=== PATIENT | female | born 1965 | race Caucasian/White ===

== ENCOUNTER 2019-02-07 20:00 | Inpatient (IN) | payer SELFPAY ==
[2019-02-07] MEDS ORDERED: Nitroglycerin 2% Ointment 1 INCH/1 GM Packet ONE (20:17)
[2019-02-07] MEDS ORDERED: Calcium Carbonate 500 MG ChewTAB PO PRN (21:18)
[2019-02-07] MEDS ORDERED: Senokot S 8.6-50 MG TAB PO PRN ×2 (21:18)
[2019-02-07] MEDS ORDERED: Ondansetron PF 4 MG/2 ML Vial IVP PRN (21:18)
[2019-02-07] MEDS ORDERED: Acetaminophen 500 MG TAB PO PRN (21:18)
[2019-02-07] MEDS ORDERED: Benzonatate 100 MG CAP PO PRN (21:18)
[2019-02-07] MEDS ORDERED: Bisacodyl 5 MG TAB PO PRN ×2 (21:18)
[2019-02-07] MEDS ORDERED: Diabetic Tussin 200 MG/10 ML UDCUP PO PRN (21:18)
[2019-02-07] MEDS ORDERED: Sodium Chloride 0.65% Nasal 44 ML BOT EA NARE PRN (21:18)
[2019-02-07] MEDS ORDERED: hydrALAZINE 20 MG/ML VIAL SLOW IVP PRN (21:18)
[2019-02-07] MEDS ORDERED: cloNIDine 0.1 MG TAB PO PRN (21:18)
[2019-02-07] MEDS ORDERED: TICAGRELOR 90 MG TABLET PO SCH (21:30)
[2019-02-07] MEDS ORDERED: Morphine 2 MG/ML SYRINGE SLOW IVP PRN (21:43)
[2019-02-07 22:43] VITALS: BMI 26.2
[2019-02-07] MEDS: Nitroglycerin 2% Ointment 1 INCH/1 GM Packet TOP SCH (23:04)
--- NOTE | 2019-02-08 00:10 | HP ---
PRIMARY CARE PHYSICIAN: None. CHIEF COMPLAINT: Chest pain and shortness of breath. HISTORY OF PRESENTING ILLNESS: Ms. Patel is a very pleasant 53-year-old female with past medical history of tobacco abuse and possibly COPD who presented with the above-mentioned complaint to [facility]. History is mainly obtained by the patient herself and supplemented by her family member present in the room. Electronic medical records have been reviewed. Ms. Patel reports that she has been doing fairly well except for some congestion for the last couple of days. This morning, she went to work, but had to drive back midway because she started to have significant amount of chest pain located in the left anterior upper chest. She rates it as a 10/10 pain in intensity, and it felt like a pressure. It was associated with some shortness of breath. She turned around and came home and called her . The pain started to go down her arm, and her arm felt heavy. There was no dizziness, lightheadedness, nausea, or vomiting. She does notice that she has been feeling easily winded for the last few weeks but denies any swelling of her legs. Her reports that yesterday also she looked kind of pale and had some chest discomfort. When she was brought into [facility], her blood pressure was 140/69 with a pulse of 71. She underwent general evaluation. Her chest x-ray was unremarkable. Her EKG showed sinus bradycardia with minimal ST changes in some inferior and lateral leads. Her troponin was, however, elevated to 1.241. She received aspirin sublingual and transdermal nitroglycerin as well as one dose of Lovenox and was transferred to our facility for further evaluation and care. In our ER, she was still hurting and required morphine medications including morphine. Her BNP was 374. Her repeat troponin in our facility was elevated to 1.99. She is now being admitted with a presumptive diagnosis of acute ID, type 2. PAST MEDICAL HISTORY: 1. Possibly COPD. No formal diagnosis. 2. Tobacco abuse. PAST SURGICAL HISTORY: 1. section. 2. Right elbow surgery. 3. Bilateral carpal tunnel surgery. PSYCHIATRIC HISTORY: No anxiety. No depression. 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 She has history of methamphetamine use, but currently none. She has smoked one pack per day for 20 years and has cut down to half pack per day for the last six months. FAMILY HISTORY: One of her grandparents had history of stroke. Her mother had hypertension. She denies any history of congestive heart failure or heart attack in the family. CODE STATUS: Full code discussed with the patient. ALLERGIES: NO KNOWN MEDICATION ALLERGIES. CURRENT MEDICATIONS: Albuterol inhaler p.r.n. REVIEW OF SYSTEM: A 14-point review of system is done. It is negative except for those mentioned in the history and physical. All others are negative. LABORATORY STUDIES: Lab examination; CBC shows WBC is 12.8, otherwise unremarkable. PT, PTT, INR are within normal limits. Serum chemistry showed potassium of 3.4. CK-MB normal at 5.1. BNP 378. Initial troponin 1.241. Repeat troponin 1.999. Chest x-ray by my review has no evidence of any pulmonary edema, cardiomegaly, or any infiltrate. A 12-lead EKG by my review shows normal sinus rhythm without any specific acute ST or T-wave changes. PHYSICAL EXAMINATION: VITAL SIGNS: Upon presentation to the ER, blood pressure 140/69, pulse of 71, respirations 20, saturating 99% on room air. GENERAL EXAMINATION: She does appear somewhat pale, but otherwise in no acute distress. She is awake, alert, and oriented x3. HEENT EXAMINATION: Mucous membrane is moist and pink. No oropharyngeal exudate or erythema. Head is normocephalic and atraumatic. Pupils are equal and reactive to light and accommodation. Extraocular movement intact. NECK: Supple without any lymphadenopathy, JVD, or bruit. CHEST: Nontender to palpation. Clear to auscultation bilaterally without any wheezing, rales, or rhonchi. HEART: Rate and rhythm are regular without any murmurs, rubs, or gallops. ABDOMEN: Soft, nontender, and nondistended. Positive bowel sounds. No rebound, guarding, or rigidity. EXTREMITIES: Free of any cyanosis, clubbing, or edema. NEUROLOGICAL EXAMINATION: Nonfocal. SKIN: Free of any rashes or bruises. Feels warm and dry to touch. PSYCHIATRIC: Normal affect. IMPRESSION AND PLAN: 1. Type 2 myocardial infarction, likely non-ST elevation myocardial infarction. The patient will be treated with a full dose aspirin and full-dose Lovenox 1 mg/kg. We will continue to trend serial cardiac enzymes and consult Cardiology. Dr. Cabello was notified by the emergency room physician. She will be kept n.p.o. as most likely she will need a cardiac catheterization. Transthoracic echocardiogram has been ordered to assess cardiac function and valvular abnormality. The patient is high risk due to her family history as well as long-standing tobacco abuse. She will be on nurse monitoring. We will check lipid panel in the morning and start her on low-dose statin for now. Add beta morris as tolerated. We will hold for now in anticipation of cardiac cath for tomorrow. She will be treated with sublingual p.r.n. nitroglycerin as well as transdermal scheduled nitroglycerin for now. She is hemodynamically stable and currently, symptoms are under much better control. Also add nebulizers p.r.n. We will also give her one dose of Brilinta for now. Drug screen has been ordered, but the patient reports that she is clean for the last 2 years. 2. Chronic obstructive pulmonary disease. The patient will be given nebulizers as needed. She is currently compensated without any acute flare ups. 3. Tobacco abuse. Extensive counseling is provided both to the patient and her significant other in the room about tobacco cessation. The patient and family member verbalized understanding. 4. Deep venous thrombosis and gastrointestinal prophylaxis. 5. Add p.r.n. medications and supportive care. DISPOSITION: Ms. Patel is currently being admitted to the hospital with type 2 acute myocardial infarction. Estimated length of stay at this time is at least 2 to 3 midnights. Further management will depend upon her clinical course. Job ID: [id number]
[2019-02-08 00:41] LABS: Troponin I 4.296 ng/mL (< 0.028)
[2019-02-08 02:39] LABS: #Basophils 0.1 thou/uL (0.0-0.2); #Eosinphils 0.1 thou/uL (0.0-0.7); #Monocytes 0.8 thou/uL (0.11-0.59); #Neutrophils 5.5 thou/uL (1.40-6.50); %Basophils 0.8 % (0.0-1.0); %Eosinophils 0.7 % (0.0-10.0); %Lymphocytes 38.2 % (21.0-51.0); %Monocytes 7.9 % (0.0-10.0); %Neutrophils 52.5 % (42.0-75.0); Hemoglobin 11.7 g/dL (12.0-16.0); Mean Corpuscular HGB CONC 34.1 g/dL (32.0-36.0); Mean Corpuscular Hemoglobin 32.1 pg (27.0-31.0); Mean Corpuscular Volume 94.1 fL (78.0-98.0); Platelet Count 140 thou/uL (130-400); Red Blood Cell (RBC) Count 3.65 mill/uL (4.20-5.40); White Blood Cell (WBC) Count 10.5 thou/uL (4.8-10.8)
[2019-02-08 03:02] LABS: Anion Gap 11 mmol/L (10-20); BUN (Urea Nitrogen) 9 mg/dL (9.8-20.1); Calc. Creatinine Clearance 90 mL/min (70-130); Calcium 9.3 mg/dL (7.8-10.44); Carbon Dioxide 27 mmol/L (22-29); Cardiac Risk 7.7 (Less than 4.5); Chloride 107 mmol/L (98-107); Cholesterol 184 mg/dl (< 200 Desired); Estimated GFR-MDRD 78; Glucose 97 mg/dL (70-105); HDL Cholesterol 24 mg/dL (>60 Neg Risk); LDL Cholesterol, Calculated 133 mg/dL; Potassium 3.5 mmol/L (3.5-5.1); Sodium 141 mmol/L (136-145); Triglycerides 137 mg/dL (Less than 150)
[2019-02-08 03:10] LABS: Amphetamine Not Detected (NotDetected); Barbiturates Screen Not Detected (NotDetected); Benzodiazepine Screen Detected (NotDetected); Cocaine Metabolite Screen Not Detected (NotDetected); Medtox Control Line Valid? VALID (VALID); Medtox Reader # READER 4; Methadone Not Detected (NotDetected); Methamphetamine Not Detected (NotDetected); Opiate Screen Detected (NotDetected); Oxycodone Screen Not Detected (NotDetected); Phencyclidine (PCP) Not Detected (NotDetected); THC/Cannabinoid Screen Detected (NotDetected); Tricyclic Screen Not Detected (NotDetected)
[2019-02-08 03:32] LABS: Troponin I 6.216 ng/mL (< 0.028)
[2019-02-08] MEDS: Nitroglycerin 0.4 MG TAB (25 Tab Bottle) SL PRN ×3 (04:07→04:19)
[2019-02-08] MEDS: Nitroglycerin 2% Ointment 1 INCH/1 GM Packet TOP SCH ×3 (05:11→20:54)
[2019-02-08] MEDS ORDERED: Communication Order-Pharmacy FS SCH (08:45)
[2019-02-08] MEDS ORDERED: Heparin 10,000 UNITS/1 ML VIAL ONE (08:57)
[2019-02-08] MEDS ORDERED: Nitroglycerin 100MG/250ML BOT 0 ML ONE (08:57)
[2019-02-08] MEDS ORDERED: Enoxaparin Sodium 80 MG/0.8 ML SYRINGE SC SCH (09:00)
[2019-02-08] MEDS ORDERED: Aspirin 325 mg Enteric Coated Tablet PO SCH (09:00)
[2019-02-08 09:29] LABS: Hemoglobin 11.6 g/dL (12.0-16.0); Platelet Count 150 thou/uL (130-400)
[2019-02-08] MEDS: guaiFENesin ER 600 MG TAB PO SCH ×2 (09:32→20:56)
[2019-02-08] MEDS: Famotidine 20 MG TAB PO SCH ×2 (09:32→20:55)
--- NOTE | 2019-02-08 09:34 | PDOC.PN ---
- Subjective Encounter Start Date: 02/08/19 Encounter Start Time: 07:40 -: old records requested/rev Patient seen and examined. No new complaints. No overnight events has some chest heaviness - Objective MAR Reviewed: Yes Vital Signs & Weight: Vital Signs (12 hours) Temp Pulse Resp BP Pulse Ox 02/08/19 07:36 95 02/08/19 04:05 98.4 F 66 16 161/63 H 97 02/07/19 23:10 96 02/07/19 22:10 98.9 F 57 L 15 114/58 L 96 Weight Weight 148 lb 1.6 oz I&O: 02/07/19 02/08/19 02/09/19 06:59 06:59 06:59 Intake Total 738 Output Total 100 Balance 638 Result Diagrams: 02/08/19 09:08 02/08/19 02:27 Radiology Reviewed by me: Yes EKG Reviewed by me: Yes Phys Exam - Physical Examination Constitutional: NAD HEENT: PERRLA, moist MMs, sclera anicteric Neck: no JVD, supple Respiratory: no wheezing, no rales, no rhonchi Cardiovascular: RRR, no significant murmur, no rub Gastrointestinal: soft, non-tender, no distention, positive bowel sounds Musculoskeletal: no edema, pulses present Neurological: non-focal, normal sensation, moves all 4 limbs Lymphatic: no nodes Psychiatric: normal affect, A&O x 3 Skin: no rash, normal turgor Dx/Plan (1) NSTEMI (non-ST elevated myocardial infarction) Code(s): I21.4 - NON-ST ELEVATION (NSTEMI) MYOCARDIAL INFARCTION Status: Acute (2) Dyslipidemia Code(s): E78.5 - HYPERLIPIDEMIA, UNSPECIFIED Status: Chronic (3) Tobacco abuse Code(s): Z72.0 - TOBACCO USE Status: Chronic - Plan cont current plan of care * continue aspirin and lovenox * add lipitor 40 mg and metoprolol 12.5 mg po bid * today cardiac cath * echo * counselled to avoid smoking * medication reviewed as below * symptomatic treatment. Review of Systems - Review of Systems ENT: negative: Ear Pain, Ear Discharge, Nose Pain, Nose Discharge, Nose Congestion, Mouth Pain, Mouth Swelling, Throat Pain, Throat Swelling, Other Respiratory: negative: Cough, Dry, Shortness of Breath, Hemoptysis, SOB with Excertion, Pleuritic Pain, Sputum, Wheezing Cardiovascular: negative: chest pain, palpitations, orthopnea, paroxysmal nocturnal dyspnea, edema, light headedness, other Gastrointestinal: negative: Nausea, Vomiting, Abdominal Pain, Diarrhea, Constipation, Melena, Hematochezia, Other Genitourinary: negative: Dysuria, Frequency, Incontinence, Hematuria, Retention , Other Musculoskeletal: negative: Neck Pain, Shoulder Pain, Arm Pain, Back Pain, Hand Pain, Leg Pain, Foot Pain, Other Skin: negative: Rash, Lesions, Xander, Bruising, Other - Medications/Allergies Allergies/Adverse Reactions: Allergies Allergy/AdvReac Type Severity Reaction Status Date / Time No Known Drug Allergies Allergy Verified 02/08/19 02:42 Medications: Current Medications Acetaminophen (Tylenol) 1,000 mg PO Q6H PRN PRN Reason: Mild Pain (1-3) Hydrocodone Bitart/Acetaminophen ([place] 5/325) 1 tab PO Q4H PRN PRN Reason: Moderate Pain (4-6) Albuterol/Ipratropium (Duoneb) 3 ml NEB [id number] PRN PRN Reason: SOB &/or Wheezing Aspirin (Ecotrin) 325 mg PO DAILY [facility] Last Admin: 02/08/19 09:31 Dose: Not Given Atorvastatin Calcium (Lipitor) 20 mg PO HS [facility] Benzonatate (Tessalon) 100 mg PO Q6H PRN PRN Reason: Cough Bisacodyl (Dulcolax) 10 mg PO DAILYPRN PRN PRN Reason: Constipation Calcium Carbonate (Tums) 1,000 mg PO Q4H PRN PRN Reason: Heartburn or Indigestion Clonidine (Catapres) 0.1 mg PO Q4H PRN PRN Reason: SBP > 160____ Famotidine (Pepcid) 20 mg PO BID [facility] Last Admin: 02/08/19 09:32 Dose: Not Given Guaifenesin (Robitussin Sf) 200 mg PO Q4H PRN PRN Reason: Cough Guaifenesin (Mucinex) 600 mg PO Q12HR [facility] Last Admin: 02/08/19 09:32 Dose: Not Given Hydralazine HCl (Apresoline) 10 mg SLOW IVP Q4H PRN PRN Reason: SBP > 180 and HR < 70 Miscellaneous Information (Communication Order-Pharmacy) 0 each FS ONE [facility] Morphine Sulfate (Morphine) 2 mg SLOW IVP Q4H PRN PRN Reason: severe pain Last Admin: 02/08/19 04:35 Dose: 2 mg Nitroglycerin (Nitrostat) 0.4 mg SL Q5MIN PRN PRN Reason: Chest Pain Last Admin: 02/08/19 04:19 Dose: 0.4 mg Nitroglycerin (Nitro-Bid 2% Ointment) 0.5 inch TOP Q8HR [facility] Last Admin: 02/08/19 05:11 Dose: 0.5 inch Ondansetron HCl (Zofran) 4 mg IVP Q6H PRN PRN Reason: Nausea/Vomiting Senna/Docusate Sodium (Senokot S) 2 tab PO BIDPRN PRN PRN Reason: Constipation Sodium Chloride ([place] Nasal [place] 0.65%) 0 ml EA NARE QIDPRN PRN PRN Reason: Nasal Congestion Sodium Chloride (Flush - Normal Saline) 10 ml IVF Q12HR [facility] Last Admin: 02/08/19 09:32 Dose: 10 ml Sodium Chloride (Flush - Normal Saline) 10 ml IVF PRN PRN PRN Reason: Saline Flush
[2019-02-08] MEDS ORDERED: Iopamidol 370 76% 100 ML VIAL ONE (09:49)
[2019-02-08] MEDS ORDERED: Iopamidol 370 76% 50 ML VIAL FS ONE (09:49)
[2019-02-08] MEDS ORDERED: Midazolam HCl 2 mg/2 ml Vial ONE ×2 (09:55→11:30)
[2019-02-08] MEDS ORDERED: TICAGRELOR 90 MG TABLET ONE (11:30)
--- NOTE | 2019-02-08 13:41 | CON ---
DATE OF CONSULTATION: HISTORY OF PRESENT ILLNESS: The patient is a 53-year-old woman, who presents for evaluation of chest discomfort. The patient has no previous cardiac history. She has a history of COPD. The patient was in her usual state of health when she developed left-sided chest pain. This radiated into her left shoulder. The patient presented to [place] [facility]. She was transferred to [place] for further evaluation. The patient denies having any present chest discomfort. PAST MEDICAL HISTORY: COPD. PAST SURGICAL HISTORY: She had surgery, elbow surgery, and hand surgery. SOCIAL HISTORY: She has a long history of tobacco abuse. MEDICATIONS ON ADMISSION: Albuterol inhalers. FAMILY HISTORY: No strong family history of heart disease. ALLERGIES: NO KNOWN DRUG ALLERGIES. REVIEW OF SYSTEMS: Ten-point system otherwise unremarkable. PHYSICAL EXAMINATION: GENERAL: Thin woman, in no acute distress. VITAL SIGNS: Blood pressure 161/63. NECK: Showed no jugular distention. LUNGS: Coarse breath sounds bilateral. HEART: Regular rate and rhythm. Normal S1 and S2. No murmurs. ABDOMEN: Nondistended. EXTREMITIES: Showed no edema. VASCULAR: Radial pulse 2+. LABORATORY DATA: Her sodium is 141, potassium 3.5, chloride 107, bicarbonate 27, BUN was 9, and creatinine 0.78. Troponin was 6.2. Her EKG revealed sinus bradycardia, otherwise normal ECG. IMPRESSION: 1. Non-Q-wave myocardial infarction. 2. Chronic obstructive pulmonary disease. 3. Tobacco abuse. This patient presents with a non-Q-wave myocardial infarction. I would recommend proceeding directly with cardiac catheterization. I explained the risks involved with the procedure including ID, bleeding, stroke, cardiac rhythm and cardiac . The patient understands these risks and wished to proceed. PLAN: Proceed with cardiac catheterization. Please call my office. Job ID: [id number]
[2019-02-08] MEDS ORDERED: Morphine 2 MG/ML SYRINGE ONE (14:27)
[2019-02-08] MEDS: HYDROcodone/Acetaminophen 5/325 mg Tablet PO PRN (20:55)
[2019-02-08] MEDS: TICAGRELOR 90 MG TABLET PO SCH (20:56)
[2019-02-08] MEDS: Metoprolol Tartrate 25 MG TAB PO SCH (20:57)
[2019-02-08] MEDS ORDERED: Atorvastatin Calcium 20 MG TAB PO SCH (21:00)
[2019-02-08] MEDS ORDERED: Atorvastatin Calcium 40 MG TAB PO SCH (21:00)
[2019-02-09] MEDS: Nitroglycerin 2% Ointment 1 INCH/1 GM Packet TOP SCH ×3 (05:38→20:54)
[2019-02-09 05:43] LABS: #Eosinphils 0.1 thou/uL (0.0-0.7); #Lymphocytes 2.2 thou/uL (1.20-3.40); #Monocytes 0.8 thou/uL (0.11-0.59); #Neutrophils 6.7 thou/uL (1.40-6.50); %Basophils 0.5 % (0.0-1.0); %Eosinophils 0.9 % (0.0-10.0); %Lymphocytes 22.3 % (21.0-51.0); %Monocytes 8.2 % (0.0-10.0); %Neutrophils 68.2 % (42.0-75.0); Hemoglobin 10.9 g/dL (12.0-16.0); Mean Corpuscular HGB CONC 33.7 g/dL (32.0-36.0); Mean Corpuscular Hemoglobin 31.6 pg (27.0-31.0); Platelet Count 135 thou/uL (130-400); RBC Distribution Width 11.8 % (11.5-14.5); Red Blood Cell (RBC) Count 3.43 mill/uL (4.20-5.40); White Blood Cell (WBC) Count 9.8 thou/uL (4.8-10.8)
[2019-02-09 05:55] LABS: ALT (SGPT) 14 U/L (8-55); AST (SGOT) 31 U/L (5-34); Albumin 3.5 g/dL (3.5-5.0); Alkaline Phosphatase 95 U/L (40-150); Anion Gap 11 mmol/L (10-20); BUN (Urea Nitrogen) 9 mg/dL (9.8-20.1); Bilirubin, Total 0.7 mg/dL (0.2-1.2); Calc. Creatinine Clearance 104 mL/min (70-130); Calcium 8.7 mg/dL (7.8-10.44); Carbon Dioxide 21 mmol/L (22-29); Chloride 110 mmol/L (98-107); Estimated GFR-MDRD Greater than 90; Globulin 2.6 g/dL (2.4-3.5); Glucose 82 mg/dL (70-105); Potassium 3.6 mmol/L (3.5-5.1); Protein, Total 6.1 g/dL (6.0-8.3); Sodium 138 mmol/L (136-145)
[2019-02-09] MEDS: TICAGRELOR 90 MG TABLET PO SCH ×2 (08:33→20:53)
[2019-02-09] MEDS: Metoprolol Tartrate 25 MG TAB PO SCH ×2 (08:34→20:53)
[2019-02-09] MEDS: Aspirin 81 mg Enteric Coated Tablet PO SCH (08:34)
[2019-02-09] MEDS: Famotidine 20 MG TAB PO SCH ×2 (08:34→20:52)
[2019-02-09] MEDS: guaiFENesin ER 600 MG TAB PO SCH ×2 (08:35→20:52)
[2019-02-09] MEDS: HYDROcodone/Acetaminophen 5/325 mg Tablet PO PRN ×2 (08:40→20:53)
--- NOTE | 2019-02-09 09:49 | PDOC.PN ---
- Subjective Encounter Start Date: 02/09/19 Encounter Start Time: 07:20 Patient seen and examined. No new complaints. No overnight events - Objective MAR Reviewed: Yes Vital Signs & Weight: Vital Signs (12 hours) Temp Pulse Resp BP Pulse Ox 02/09/19 03:24 98.5 F 61 18 127/58 L 100 Weight Weight 148 lb 1.6 oz I&O: 02/08/19 02/09/19 02/10/19 06:59 06:59 06:59 Intake Total 738 1450 Output Total 100 600 Balance 638 850 Result Diagrams: 02/09/19 05:26 02/09/19 05:26 Radiology Reviewed by me: Yes EKG Reviewed by me: Yes Phys Exam - Physical Examination Constitutional: NAD HEENT: PERRLA, moist MMs, sclera anicteric Neck: no JVD, supple Respiratory: no wheezing, no rales, no rhonchi Cardiovascular: RRR, no significant murmur, no rub Gastrointestinal: soft, non-tender, no distention, positive bowel sounds Musculoskeletal: no edema, pulses present Neurological: non-focal, normal sensation, moves all 4 limbs Lymphatic: no nodes Psychiatric: normal affect, A&O x 3 Skin: no rash, normal turgor Dx/Plan (1) NSTEMI (non-ST elevated myocardial infarction) Code(s): I21.4 - NON-ST ELEVATION (NSTEMI) MYOCARDIAL INFARCTION Status: Acute (2) Dyslipidemia Code(s): E78.5 - HYPERLIPIDEMIA, UNSPECIFIED Status: Chronic (3) Tobacco abuse Code(s): Z72.0 - TOBACCO USE Status: Chronic (4) Cannabis abuse Code(s): F12.10 - CANNABIS ABUSE, UNCOMPLICATED Status: Acute (5) Moderate mitral regurgitation Code(s): I34.0 - NONRHEUMATIC MITRAL (VALVE) INSUFFICIENCY Status: Acute (6) Moderate tricuspid regurgitation Code(s): I07.1 - RHEUMATIC TRICUSPID INSUFFICIENCY Status: Acute - Plan cont current plan of care, plan discussed w/ family * medication reviewed as below * symptomatic treatment * see discharge summery. * cardiac rehab Review of Systems - Review of Systems ENT: negative: Ear Pain, Ear Discharge, Nose Pain, Nose Discharge, Nose Congestion, Mouth Pain, Mouth Swelling, Throat Pain, Throat Swelling, Other Respiratory: negative: Cough, Dry, Shortness of Breath, Hemoptysis, SOB with Excertion, Pleuritic Pain, Sputum, Wheezing Cardiovascular: negative: chest pain, palpitations, orthopnea, paroxysmal nocturnal dyspnea, edema, light headedness, other Gastrointestinal: negative: Nausea, Vomiting, Abdominal Pain, Diarrhea, Constipation, Melena, Hematochezia, Other Genitourinary: negative: Dysuria, Frequency, Incontinence, Hematuria, Retention , Other Musculoskeletal: negative: Neck Pain, Shoulder Pain, Arm Pain, Back Pain, Hand Pain, Leg Pain, Foot Pain, Other Skin: negative: Rash, Lesions, Xander, Bruising, Other - Medications/Allergies Allergies/Adverse Reactions: Allergies Allergy/AdvReac Type Severity Reaction Status Date / Time No Known Drug Allergies Allergy Verified 02/08/19 02:42 Medications: Current Medications Acetaminophen (Tylenol) 1,000 mg PO Q6H PRN PRN Reason: Mild Pain (1-3) Hydrocodone Bitart/Acetaminophen ([place] 5/325) 1 tab PO Q4H PRN PRN Reason: Moderate Pain (4-6) Last Admin: 02/09/19 08:40 Dose: 1 tab Albuterol/Ipratropium (Duoneb) 3 ml NEB [id number] PRN PRN Reason: SOB &/or Wheezing Aspirin (Ecotrin) 81 mg PO DAILY [facility] Last Admin: 02/09/19 08:34 Dose: 81 mg Benzonatate (Tessalon) 100 mg PO Q6H PRN PRN Reason: Cough Bisacodyl (Dulcolax) 10 mg PO DAILYPRN PRN PRN Reason: Constipation Calcium Carbonate (Tums) 1,000 mg PO Q4H PRN PRN Reason: Heartburn or Indigestion Clonidine (Catapres) 0.1 mg PO Q4H PRN PRN Reason: SBP > 160____ Famotidine (Pepcid) 20 mg PO BID [facility] Last Admin: 02/09/19 08:34 Dose: 20 mg Guaifenesin (Robitussin Sf) 200 mg PO Q4H PRN PRN Reason: Cough Guaifenesin (Mucinex) 600 mg PO Q12HR [facility] Last Admin: 02/09/19 08:35 Dose: 600 mg Hydralazine HCl (Apresoline) 10 mg SLOW IVP Q4H PRN PRN Reason: SBP > 180 and HR < 70 Metoprolol Tartrate (Lopressor) 12.5 mg PO BID [facility] Last Admin: 02/09/19 08:34 Dose: 12.5 mg Morphine Sulfate (Morphine) 2 mg SLOW IVP Q4H PRN PRN Reason: severe pain Last Admin: 02/08/19 04:35 Dose: 2 mg Nitroglycerin (Nitrostat) 0.4 mg SL Q5MIN PRN PRN Reason: Chest Pain Last Admin: 02/08/19 04:19 Dose: 0.4 mg Nitroglycerin (Nitro-Bid 2% Ointment) 0.5 inch TOP Q8HR [facility] Last Admin: 02/09/19 05:38 Dose: 0.5 inch Ondansetron HCl (Zofran) 4 mg IVP Q6H PRN PRN Reason: Nausea/Vomiting Rosuvastatin Calcium (Crestor) 20 mg PO HS [facility] Senna/Docusate Sodium (Senokot S) 2 tab PO BIDPRN PRN PRN Reason: Constipation Sodium Chloride ([place] Nasal [place] 0.65%) 0 ml EA NARE QIDPRN PRN PRN Reason: Nasal Congestion Sodium Chloride (Flush - Normal Saline) 10 ml IVF Q12HR [facility] Last Admin: 02/09/19 08:35 Dose: 10 ml Sodium Chloride (Flush - Normal Saline) 10 ml IVF PRN PRN PRN Reason: Saline Flush Ticagrelor (Brilinta) 90 mg PO BID [facility] Last Admin: 02/09/19 08:33 Dose: 90 mg
--- NOTE | 2019-02-09 10:51 | DIS ---
DATE OF ADMISSION: 02/07/2019 DATE OF DISCHARGE: 02/09/2019 PRIMARY CARE PHYSICIAN: [facility] Call Admission. DISCHARGE DISPOSITION: Home. PRIMARY DISCHARGE DIAGNOSES: 1. [id number] myocardial infarction. 2. Status post cardiac cath and drug-eluting stent placement in coronary vessels x2. 3. Moderate mitral regurgitation. 4. Moderate tricuspid regurgitation. SECONDARY DISCHARGE DIAGNOSES: 1. Dyslipidemia. 2. Tobacco abuse. 3. Cannabinoid abuse. PRIMARY PROCEDURE/OPERATION: Cardiac catheterization was performed by Dr. Villasenor and found with two-vessel CAD and drug-eluting stent was placed in proximal right coronary artery and ostial right coronary artery. RADIOLOGICAL INVESTIGATION: Echocardiography showed normal EF. SIGNIFICANT LABORATORY DATA: Hemoglobin 10.9. Creatinine 0.68, troponin 6.21, LDL 133. Urine drug screen positive for opiates, benzos and cannabinoid. DISCHARGE MEDICATION: 1. Aspirin 81 mg p.o. daily. 2. Brilinta 90 mg p.o. b.i.d. 3. Lopressor 12.5 mg b.i.d. 4. Lipitor 40 mg p.o. at bedtime. 5. Ventolin nebulization q.6 hourly p.r.n. CONTRAINDICATION: None. CODE STATUS: Full code. INPATIENT ACCOUNT INFORMATION CLERK: Dr. Alonso was consulted while in hospital. TEST RESULT PENDING UPON DISCHARGE: None. ALLERGIES: NO KNOWN DRUG ALLERGIES. DISCHARGE PLAN: Posthospital, the patient will follow up with primary care physician, and Dr. Alonso as instructed. HOSPITAL COURSE: A 53-year-old female with above-mentioned medical problem, who was admitted by Dr. Barraza. Please see her H and P for further details. The patient was having chest pain. Her description was consistent with angina. Her EKG was nonspecific. Her troponin was significantly abnormal. The patient's diagnosis was consistent with non-ST elevation [place]. We treated her with aspirin, Brilinta, and Lovenox. Echocardiography was obtained. Cardiology did cardiac cath and two stents were placed in RCA. Postprocedure, the patient remained stable. We started cardiac rehab. If Cardiology okay, then we will consider discharging her home later on today. I have seen and examined the patient at bedside today. Please see my progress note from today. The patient is medically stable. I have provided the patient education about avoiding smoking as well as cannabinoid abuse. All new medication prescription sent to her pharmacy. Job ID: [id number]
[2019-02-09] MEDS ORDERED: Rosuvastatin 20 MG TAB PO SCH (21:00)
[2019-02-10] MEDS: TICAGRELOR 90 MG TABLET PO SCH (09:18)
[2019-02-10] MEDS: guaiFENesin ER 600 MG TAB PO SCH (09:18)
[2019-02-10 09:19] LABS: Platelet Count 163 thou/uL (130-400)
[2019-02-10] MEDS: Metoprolol Tartrate 25 MG TAB PO SCH (09:19)
[2019-02-10] MEDS: Famotidine 20 MG TAB PO SCH (09:19)
[2019-02-10] MEDS: Aspirin 81 mg Enteric Coated Tablet PO SCH (09:20)
[2019-02-10] MEDS: Nitroglycerin 2% Ointment 1 INCH/1 GM Packet TOP SCH ×2 (09:31→15:02)
[2019-02-10 15:00] VITALS: BP 123/58; TEMP 98.3
== END 2019-02-10 16:25 | disposition home or self-care (01) | DRG 247 ==
LOC: ERS 20:00 → 2NO 21:58
PROVIDERS: ADMIT Internal Medicine; ATTEND Internal Medicine
PROC: 027035Z Dilation of Coronary Artery, One Artery with Two Drug-eluting Intraluminal Devices, Percutaneous Approach (ICD-10-PCS; principal; 2019-02-08)
PROC: B2111ZZ Fluoroscopy of Multiple Coronary Arteries using Low Osmolar Contrast (ICD-10-PCS; 2019-02-08)
PROC: 4A023N7 Measurement of Cardiac Sampling and Pressure, Left Heart, Percutaneous Approach (ICD-10-PCS; 2019-02-08)
PROC: B2151ZZ Fluoroscopy of Left Heart using Low Osmolar Contrast (ICD-10-PCS; 2019-02-08)
DX: I21.A1 Myocardial infarction type 2 (principal); F17.210 Nicotine dependence, cigarettes, uncomplicated; J44.9 Chronic obstructive pulmonary disease, unspecified; E78.5 Hyperlipidemia, unspecified; I08.1 Rheumatic disorders of both mitral and tricuspid valves; F12.10 Cannabis abuse, uncomplicated; I25.119 Atherosclerotic heart disease of native coronary artery with unspecified angina pectoris; Z79.899 Other long term (current) drug therapy
CPT/HCPCS: 36415; 80048; 80053; 80061; 80306; 82565; 85014; 85018; 85025; 85049; 85347; 92928; 93005; 93010; 93306; 93458; 93798; 99152; 99153; C1769; C1874; C1887; C9600; J1644; J1650; J2250; J2270; Q9967

== ENCOUNTER 2019-05-18 23:10 | Observation (INO) | payer OTHER ==
[2019-05-18] MEDS ORDERED: Nitroglycerin 2% Ointment 1 INCH/1 GM Packet ONE (23:23)
[2019-05-19] MEDS ORDERED: Acetaminophen 325 MG TAB PO PRN ×2 (00:27→05:56)
[2019-05-19] MEDS ORDERED: Ondansetron ODT 4 MG TAB SL PRN (00:27)
[2019-05-19] MEDS ORDERED: Ondansetron PF 4 MG/2 ML Vial IVP PRN (00:27)
[2019-05-19 00:30] VITALS: BMI 24.0
[2019-05-19 00:57] LABS: Troponin I 0.012 ng/mL (< 0.028)
[2019-05-19 04:19] LABS: Troponin I Less than 0.010 ng/mL (< 0.028)
--- NOTE | 2019-05-19 05:48 | HP ---
CHIEF COMPLAINT: Chest discomfort. HISTORY OF PRESENT ILLNESS: The patient is a 53-year-old white female with coronary artery disease status post stent placement 3 months ago for non ST-elevation VA, presented to the emergency room with chest discomfort. The chest discomfort was sudden onset that started around 7:30 p.m. yesterday. It radiated to the left side of her neck with tingling across her upper chest. She has some nausea with shortness of breath. No lightheadedness, dizziness, syncope, or diaphoresis reported. It was moderate in intensity without any aggravating or relieving factor. Her chest discomfort significantly improved after nitroglycerin in the emergency room. She denies recent immobilization travel. She has intermittent cough, which is chronic. She denies fever or chills. PAST MEDICAL HISTORY: 1. Non ST-elevation VA in January of 2019, requiring drug-eluting stent placement. 2. Tobacco dependence. 3. Cannabis abuse. 4. Dyslipidemia. 5. Moderate mitral regurgitation. 6. Moderate tricuspid regurgitation. PAST SURGICAL HISTORY: 1. Coronary stent placement. 2. . 3. Right elbow surgery. 4. Bilateral carpal tunnel surgery. ALLERGIES: NO KNOWN DRUG ALLERGIES. CURRENT HOME MEDICATION: 1. Aspirin 81 mg daily. 2. Plavix 75 mg daily. 3. Crestor 20 mg at bedtime. 4. Coenzyme Q10 of 100 mg at bedtime. 5. Metoprolol tartrate 12.5 mg b.i.d. 6. Albuterol inhaler as needed. SOCIAL HISTORY: The patient currently lives at home with her family. She denies current use of alcohol or drugs. She continues to smoke up to half pack a day. FAMILY HISTORY: Negative for heart disease. One of the grandparent had stroke. Hypertension runs in her family. REVIEW OF SYSTEMS: All other review of systems was reviewed and were found negative. PHYSICAL EXAMINATION: VITAL SIGNS: Temperature 98.5 respiration of 16, pulse rate of 55, blood pressure of 129/59, O2 saturation 100% on room air. GENERAL: 53-year-old female in no apparent distress, chest discomfort has improved after nitroglycerin. HEENT: Head, atraumatic and normocephalic. Sclerae anicteric. Moist mucous membranes. No oral lesion. NECK: Supple. No JVD appreciated. No carotid bruit. LUNGS: Clear to auscultation bilaterally. No wheezing, rales, or rhonchi. HEART: S1 and S2 present. Regular rate and rhythm. No rubs or gallops appreciated. ABDOMEN: Soft, nontender. Bowel sounds present. EXTREMITIES: No edema or calf tenderness. NEUROLOGY: Grossly nonfocal. Moves all 4 extremities. PSYCHIATRY: Alert, awake, oriented x3. SKIN: Warm and dry. LYMPH NODES: No palpable lymph nodes in the neck. PERIPHERAL VASCULAR: Radial pulses palpable bilaterally. MUSCULOSKELETAL: No joint swelling tenderness. LABORATORY FINDINGS: EKG by my review showed sinus bradycardia with nonspecific ST-T wave changes. Troponins were negative. BUN 12, creatinine 0.92. LFTs in normal range. PT/INR, PTT normal range. Hemoglobin 13.0. IMAGING STUDIES: Chest x-ray by my review was negative for infiltrate. IMPRESSION: 1. Chest discomfort. 2. Coronary artery disease status post RCA stent placement, 3 months ago. 3. Non ST-elevation myocardial infarction (02/09). 4. Moderate mitral regurgitation. 5. Moderate tricuspid regurgitation. 6. Ongoing tobacco abuse. 7. Dyslipidemia. 8. History of cannabis abuse. 9. Chronic kidney disease, stage 2. PLAN: The patient will be monitored on the telemetry unit. Serial troponins will be obtained. Cardiology will be consulted. The patient will be kept n.p.o. We will continue aspirin and Plavix along with beta blockers and statins. Lifestyle modification including tobacco cessation was emphasized. Echocardiogram three months ago showed left ventricular ejection fraction 50% to 55% with moderate mitral regurgitation and [id number] tricuspid regurgitation. Plan of care was discussed with the patient in detail. She stated understanding. Job ID: [id number]
[2019-05-19] MEDS ORDERED: Nitroglycerin 0.4 MG TAB (25 Tab Bottle) PO PRN (05:55)
[2019-05-19] MEDS ORDERED: Calcium Carbonate 500 MG ChewTAB PO PRN (05:56)
[2019-05-19] MEDS ORDERED: Senokot S 8.6-50 MG TAB PO PRN (05:56)
[2019-05-19] MEDS: Nitroglycerin 2% Ointment 1 INCH/1 GM Packet TOP SCH ×3 (06:53→19:46)
[2019-05-19] MEDS: Aspirin 81 mg Enteric Coated Tablet PO SCH (08:21)
[2019-05-19] MEDS: Metoprolol Tartrate 25 MG TAB PO SCH ×2 (08:21→19:46)
[2019-05-19] MEDS: Clopidogrel Bisulfate 75 MG TAB PO SCH (08:21)
--- NOTE | 2019-05-19 13:23 | CON ---
DATE OF CONSULTATION: PRIMARY CARE DOCTOR: Adrianne. PRIMARY SUPERVISOR CUTTING AND BONING: Delmar Alonso MD REASON FOR CARDIOLOGY CONSULT: Chest pain, rule out ACS. HISTORY OF PRESENT ILLNESS: Ms. Patel is a 53-year-old female with a significant history of coronary artery disease with stent placement in RCA in January 2019, COPD, hyperlipidemia, and tobacco abuse. The patient was doing well after the stent placement in January 2019. She has continued exercising, exercise with walking 30 minutes to 1 hour every day or swimming every day without any cardiac complaints. She exercised day before yesterday with walking with moderate pace without any cardiac complaints. Yesterday, after she came back from work, she started having pressure and tingling like sensation all over to the bilateral chest and her sensation radiated to the left neck and she also complained of shortness of breath for 2 to 3 hours continuously. After the patient received the second nitroglycerin at the ER, the patient's symptom subsided. During the episode, the patient denied dizziness, lightheadedness, pressure to the left upper extremity, feeling nauseated or vomited. During the initial cardiac assessment, the patient denied any cardiac complaints at this moment. The patient underwent cardiac catheterization with drug-eluting stent in proximal and ostial right coronary arteries on February 07, 2019. The patient had echocardiograms done on February 08, 2019, with EF 50% to 55%, normal left ventricular size, moderate mitral valve regurgitation, mild aortic valve regurgitation, and [id number] tricuspid valve regurgitation. The patient continue smoking at least one puff every day. No one cigarette. PAST MEDICAL HISTORY: 1. Coronary artery disease. 2. Tobacco abuse. 3. Hyperlipidemia. 4. COPD. 5. Marijuana abuse. 6. Moderate mitral valve regurgitation. PAST SURGICAL HISTORY: Cardiac catheterization with drug-eluting stent placement in RCA in January 2019, x3, right elbow surgery, and carpal tunnel surgery in 1992. The patient had a total hysterectomy in 2000. FAMILY HISTORY: The patient's great grandmother on the maternal side had a history of CVA. The patient's grandfather on the maternal side had a colon cancer. She does not know any family history of paternal side. SOCIAL HISTORY: She is . She has 3 children, who live well. She quit smoking; however, she has continued having puff from her almost every day. She denies EtOH abuse. She uses marijuana every evening. She walks 30 minutes to 1 hour or swimming every day without any cardiac complaints. She drinks 1 to 2 cup of coffee a day. ALLERGIES: SHE HAS NO KNOWN DRUG ALLERGIES. MEDICATIONS: The patient's home medications; 1. Aspirin 81 mg once a day. 2. Metoprolol 12.5 mg twice a day. 3. CoQ10 of 100 mg once a day. 4. Crestor 20 mg once a day. 5. Plavix 75 mg once a day. 6. Albuterol 2 puffs every 6 hours as needed. REVIEW OF SYSTEMS: A 12-point review of systems negative unless otherwise mentioned in HPI. PHYSICAL EXAMINATION: VITAL SIGNS: Blood pressure 105/51, temperature 97.8, pulse is 51 and sinus william and sinus rhythm, respiratory rate is 16, and O2 saturation 96% with room air. GENERAL: The patient is alert and oriented x4, not in acute distress. HEENT: Head is normocephalic and atraumatic. Eyes, extraocular muscle movement intact. ENT and mouth, oral and nasal mucosa moist without lesion. NECK: No JVD. Normal range of motion. No nodes. Supple. RESPIRATORY: Clear to auscultate bilaterally, but diminished at the bases. CARDIOVASCULAR: Regular rate and rhythm. Normal S1 and S2. There were no S3 or S4. No significant murmurs, heaves, or thrill noted. 2+ pulses in bilateral lower extremities. No edema in the lower extremities. ABDOMEN: Soft and nontender. No mass to palpate. Bowel sounds are present. MUSCULOSKELETAL: The patient is able to move all extremities. The patient denied claudication. SKIN: Warm and dry. No rash, lesion, or erythema noticed. NEUROLOGIC: The patient alert and oriented x4. Nonfocal. PSYCHIATRIC: The patient's mood is appropriate. LABORATORY DATA: WBC 10.6, hemoglobin 13.0, hematocrit 39.1, and platelet 190. Sodium 142, potassium 3.8, BUN 12, creatinine 0.92, AST 19, and ALT 10. Troponin is negative. The patient's cholesterol in January 2019 showed a total cholesterol 184, triglyceride 137, HDL 24, and LDL 133. Since then, she is on lovastatin. Chest x-ray was done showing atherosclerosis, but no acute cardiopulmonary abnormality. A 12-lead EKG shows sinus rhythm with sinus william [address]-segment change or T-wave inversion. ASSESSMENT AND PLAN: 1. Chest pain, although the patient had a stent placement in January 2019 and troponin is negative and then, there are no abnormality in the 12-lead EKG, I would like to ask Dr. Jones to review the patient's previous catheterization with result and depends on the result, the patient might undergo cardiac catheterization, but; however, it is not going to be today, so the patient's diet is going to be resumed from today. The patient's vital signs stable at this moment. The patient denied any cardiac complaints at this moment. 2. Hyperlipidemia. The patient's cholesterol medication is managed by Dr. Alonso. Again, the patient is supposed to have another cholesterol check within three months. 3. Tobacco abuse. Smoking cessation education given to the patient and family member. 4. History of chronic obstructive pulmonary disease. The patient's breathing status is stable at this moment with room air. Strongly recommend to stop smoking and marijuana abuse. Thank you very much for Cardiology Service to participate in the care of the patient. We will follow along the patient's care team and make further recommendations as appropriate. Job ID: [id number]
--- NOTE | 2019-05-19 18:08 | CON ---
DATE OF CONSULTATION: 05/19/2019 INDICATION FOR CONSULTATION: A 53-year-old female with history of known coronary artery disease and on angioplasty and stent placement x2 to the right coronary artery in January of 2019. HISTORY OF PRESENT ILLNESS: She came home yesterday after work and noticed that she started having some mild chest pressure that became tingling and radiated up into her neck area. This persisted for at least half an hours or more, then she presented to the emergency room. She was given nitroglycerin x2 and eventually the symptoms resolved and then now she says that she occasionally still has some occasional tingling, but does not appear to be any significant EKG changes. The EKG is unremarkable. Enzymes are negative and she has had no other significant problems associated with the chest discomfort that she had yesterday, so she did state she had some mild shortness of breath after having developed the chest discomfort. Unfortunately, she continues to smoke a little bit, not very much and she also continues to use marijuana on a daily basis. She does have hyperlipidemia and some degree of COPD. PAST MEDICAL HISTORY: Please refer to the notes dictated by the nurse practitioner. SOCIAL HISTORY: Please refer to the notes dictated by the nurse practitioner. FAMILY HISTORY: Please refer to the notes dictated by the nurse practitioner. REVIEW OF SYSTEMS: Please refer to the notes dictated by the nurse practitioner. MEDICATIONS: Please refer to the notes dictated by the nurse practitioner. ALLERGIES: PLEASE REFER TO THE NOTES DICTATED BY THE NURSE PRACTITIONER. PHYSICAL EXAMINATION: GENERAL: Reveals well-developed, well-nourished female, who is in no acute distress at this time. She is alert. She is oriented. VITAL SIGNS: Stable. Her blood pressure is 114/57, heart rate is 62 and regular. Respiratory rate is 16. She is afebrile. HEENT: Unremarkable. Carotid pulses are present without bruits. CHEST: Clear to auscultation. I do not hear any rales, rhonchi, or wheezing. CARDIOVASCULAR: Reveals a regular rate and rhythm with normal S1 and S2. There are no significant murmurs, heaves, thrills, bruits, or rubs. ABDOMEN: Soft and nontender. Positive bowel sounds are present. EXTREMITIES: Show no clubbing, cyanosis, or edema. NEUROLOGIC: The patient appears to be fully intact. There are no gross focal motor deficits noted. SKIN: Warm and dry. IMPRESSION: 1. Chest pain after a stent placement in January of 2019 with a [id number] elevation myocardial infarction. We will continue to monitor the patient. We will advise her to undergo stress testing to see whether or not there is any evidence of underlying ischemia. She did not have any other significant coronary artery disease at the time of the cardiac catheterization except what involves the right coronary artery. 2. History of marijuana abuse as well as slight use of tobacco continually. I suggested that she stop doing this. 3. History of dyslipidemia. She will continue taking her Crestor. We will schedule her for stress testing. If there is any indication that there are any abnormalities, then she will need to undergo repeat cardiac catheterization for evaluation of the right coronary artery to rule out evidence of in-stent restenosis. Job ID: [id number]
[2019-05-19] MEDS ORDERED: Rosuvastatin 20 MG TAB PO SCH (21:00)
[2019-05-19] MEDS ORDERED: Ubidecarenone 50 MG CAP PO SCH (21:00)
[2019-05-20] MEDS: Nitroglycerin 2% Ointment 1 INCH/1 GM Packet TOP SCH ×2 (05:28→13:45)
[2019-05-20] MEDS ORDERED: Regadenoson 0.4 MG/5 ML SYRINGE ONE (10:18)
[2019-05-20] MEDS: Aspirin 81 mg Enteric Coated Tablet PO SCH ×2 (10:26→12:59)
[2019-05-20] MEDS: Clopidogrel Bisulfate 75 MG TAB PO SCH ×2 (10:26→13:00)
[2019-05-20] MEDS: Metoprolol Tartrate 25 MG TAB PO SCH (10:26)
[2019-05-20 12:28] VITALS: BP 120/68; TEMP 98.3
[2019-05-20] MEDS ORDERED: Metoprolol Tartrate 25 MG TAB PO SCH ×2 (13:00→21:00)
--- NOTE | 2019-05-20 13:26 | NM ---
CARDIAC SPECT: CLINICAL HISTORY: 53-year-old female with chest pain, coronary artery disease, stent placement, dyslipidemia, smoker, C OPD. TECHNIQUE: A myocardial perfusion scan was performed using the single isotope one day protocol with technetium-9 9m sestamibi. 10 mCi were injected intravenously for the rest exam followed by 33 mCi for the stress exam. Pharmacologic stress with Lexiscan was monitored and interpreted by Rayne Andrade NP. FINDINGS: Homogeneous tracer distribution is seen in the myocardial segments on stress and rest images without fixed or reversible defects. GATED SPECT LVEF: 75%. WALL MOTION EXAM: Normal. IMPRESSION: Normal myocardial perfusion scan. POS: ORIN
--- NOTE | 2019-05-20 14:10 | PDOC.CTH ---
Cardiology Progress Note - Subjective The pt seen and examined. No overnight events. No cardiac complaints. - Objective Vital Signs Temp Pulse Resp BP Pulse Ox 05/20/19 12:26 98.3 F 54 L 15 120/68 98 05/20/19 07:17 98.1 F 53 L 15 132/63 97 05/20/19 03:05 97.9 F 54 L 16 115/56 L 97 Weight 135 lb 11.2 oz 05/19/19 05/20/19 05/21/19 06:59 06:59 06:59 Intake Total 240 1680 Output Total 300 1600 200 Balance -60 80 -200 - Physical Examination General/Neuro: alert & oriented x3 Neck: no JVD present Lungs: CTA (diminished at bases) Heart: RRR Abdomen: soft Extremities: other: (No edema) - Telemetry Telemetry Rhythm: SR - Labs Troponin/CKMB Troponin I Less than 0.010 ng/mL (< 0.028) 05/19/19 03:47 - Assessment/Plan 1. CP - stress test was normal; No more CP or tingling like sensation during this hospitalization; 2. CAD with s/p CHAD stent in RCA in 01/2019 - On BBlocker, Plavix, ASA, and statin 3. Bradycardia - her HR has been low 50s without bblocker today; will decrease Metoprolol 12.5mg 1/2 tab BID 4. HLD - on statin 5. COPD - stable with RA 6. Marijuana and tobacco abuse - strongly recommend to stop MAR reviewed * From Cardiac standpoint, the pt is stable to d/c home. The pt will f/u with Dr Alonso' office within 2-3 wks. Review of Systems - Review of Systems Constitutional: reports: no symptoms reported EENTM: reports: no symptoms reported Respiratory: reports: no symptoms reported Cardiac (ROS): reports: no symptoms reported ABD/GI: reports: no symptoms reported : reports: no symptoms reported Musculoskeletal: reports: no symptoms reported
--- NOTE | 2019-05-21 07:35 | DIS ---
DATE OF ADMISSION: 05/19/2019 DATE OF DISCHARGE: 05/20/2019 DISCHARGE DIAGNOSES: 1. Chest pain. 2. Coronary artery disease, status post [id number] myocardial infarction in January of 2019 with RCA stent placement. 3. Moderate mitral valve regurgitation. 4. Moderate tricuspid valve regurgitation. 5. Tobacco abuse. 6. Hyperlipidemia. 7. History of cannabis abuse. 8. Chronic kidney disease stage 2. HISTORY OF PRESENT ILLNESS: This patient is a 53-year-old female who presented to the emergency department with chest pain. As noted, the patient had an NSTEMI three months prior with RCA stent placed. The patient had negative initial enzymes, some nonspecific ST and T-wave changes on her EKG. HOSPITAL COURSE: The patient was admitted and was placed on observation on telemetry. She had no findings on her telemetry and serial troponins remained negative. She was seen in consultation by Dr. Jones, who recommended stress testing. The stress testing was performed and was negative. Per the recommendations of Dr. Jones, the patient could be discharged to home. PHYSICAL EXAMINATION: VITAL SIGNS: On the day of discharge, temperature is 98.3, pulse 54, respirations 15, O2 saturation 98% on room air, BP is 120/68. GENERAL APPEARANCE: Age-appropriate female. She is in no distress. HEENT: PERRL. No acute lesions. HEART: Regular rate and rhythm without murmurs, gallops, or rubs. LUNGS: Clear bilaterally. ABDOMEN: Soft, nontender, and nondistended. Positive bowel sounds. No masses. No organomegaly. EXTREMITIES: No edema. DISPOSITION: The patient is discharged to home. DIET: She is to continue with a heart healthy diet. ACTIVITIES: Her activity is unrestricted. MEDICATIONS: She will be on metoprolol 6.25 mg one p.o. b.i.d. She will continue, 1. Aspirin. 2. CoQ10. 3. Rosuvastatin. 4. Plavix. 5. Albuterol. FOLLOWUP: She should follow up with Sejal Anaya PA-C in 7 days. She can return to the hospital should she have any problems prior to her followup appointments. Job ID: [id number]
== END 2019-05-20 14:58 | disposition home or self-care (01) ==
LOC: ERS 23:10 → 2SW 05-19 00:13
PROVIDERS: ADMIT Internal Medicine; ATTEND Internal Medicine
DX: R07.89 Other chest pain (principal); I25.10 Atherosclerotic heart disease of native coronary artery without angina pectoris; I08.1 Rheumatic disorders of both mitral and tricuspid valves; E78.5 Hyperlipidemia, unspecified; F17.210 Nicotine dependence, cigarettes, uncomplicated; N18.2 Chronic kidney disease, stage 2 (mild); Z79.82 Long term (current) use of aspirin; Z79.899 Other long term (current) drug therapy; Z95.5 Presence of coronary angioplasty implant and graft
CPT/HCPCS: 36415; 78452; 84484; 93017; 94760; 99285; A9500; G0378; J2785

== ENCOUNTER 2020-09-01 11:36 | Observation (INO) | payer OTHER, SELFPAY ==
[2020-09-01 12:19] LABS: #Basophils 0.1 thou/uL (0.0-0.2); #Eosinphils 0.1 thou/uL (0.0-0.7); #Lymphocytes 2.4 thou/uL (1.20-3.40); #Monocytes 0.7 thou/uL (0.11-0.59); #Neutrophils 7.1 thou/uL (1.40-6.50); %Basophils 0.9 % (0.0-1.0); %Eosinophils 1.2 % (0.0-10.0); %Lymphocytes 23.1 % (21.0-51.0); %Monocytes 6.7 % (0.0-10.0); %Neutrophils 68.1 % (42.0-75.0); Hemoglobin 14.3 g/dL (12.0-16.0); Mean Corpuscular HGB CONC 34.6 g/dL (32.0-36.0); Mean Corpuscular Hemoglobin 32.6 pg (27.0-31.0); Mean Corpuscular Volume 94.2 fL (78.0-98.0); Mean Platelet Volume 10.8 fL (7.4-10.4); Platelet Count 200 thou/uL (130-400); RBC Distribution Width 11.6 % (11.5-14.5); Red Blood Cell (RBC) Count 4.38 mill/uL (4.20-5.40); White Blood Cell (WBC) Count 10.4 thou/uL (4.8-10.8)
--- NOTE | 2020-09-01 12:25 | RAD ---
XR Chest 1 View Portable HISTORY: Chest pain COMPARISON: 06/12/2019 FINDINGS: The heart size is normal. The lungs are well expanded without focal areas of consolidation, pneumothorax or pleural effusions. Calcified granulomas are again seen in the right lung. IMPRESSION: No radiographic evidence of acute cardiopulmonary process.
[2020-09-01 12:44] LABS: ALT (SGPT) 7 U/L (8-55); AST (SGOT) 15 U/L (5-34); Albumin 4.4 g/dL (3.5-5.0); Alkaline Phosphatase 127 U/L (40-110); Anion Gap 13 mmol/L (10-20); BUN (Urea Nitrogen) 7 mg/dL (9.8-20.1); Bilirubin, Total 0.5 mg/dL (0.2-1.2); CK (CPK) 46 U/L (29-168); Calc. Creatinine Clearance 0 mL/min (70-130); Calcium 9.6 mg/dL (7.8-10.44); Carbon Dioxide 28 mmol/L (22-29); Chloride 104 mmol/L (98-107); Estimated GFR-MDRD 81; Globulin 3.6 g/dL (2.4-3.5); Glucose 93 mg/dL (70-105); Lipase 16 U/L (8-78); Potassium 3.6 mmol/L (3.5-5.1); Sodium 141 mmol/L (136-145)
[2020-09-01] MEDS ORDERED: Nitroglycerin 0.4 MG TAB 1 EACH ONE (14:58)
[2020-09-01] MEDS ORDERED: Aspirin Chewable 81 MG TAB ONE (14:58)
[2020-09-01] MEDS ORDERED: Morphine 4 MG/ML VIAL ONE (16:08)
--- NOTE | 2020-09-01 18:28 | HP ---
PRIMARY CARE PHYSICIAN: [facility] in [place]. CHIEF COMPLAINT: Chest discomfort. HISTORY OF PRESENT ILLNESS: This is a 55-year-old white female with a known history of coronary artery disease with previous OR in early 2018 with stents placed and another stent placed by Dr. Alonso about this time last year. The patient reports that she yesterday got into an argument with her . She then went and smoked a cigarette, which she had not done for about a year. Then later, she started to get some sharp stabbing pains to the left lower of her sternum. This progressed and went up into her left neck and jaw and then over into her left arm was associated with breaking into a sweat. No nausea or vomiting. No shortness of breath or coughing. No anxiety or panic symptoms. The symptoms got severe. They eventually eased off some, and they have been coming and going since they got worse today and so she came into the emergency room. In the ER, she had nitroglycerin, which helps some and aspirin and eventually was given a dose of morphine, which has helped her pain significantly. It is not really hurting her right now. EKG and cardiac marker were negative in the emergency room, so she is being put in observation for chest pain. REVIEW OF SYSTEMS: CONSTITUTIONAL: No fevers. No chills. EYES: No double vision or blurred vision. ENT: No congestion, drainage, or sore throat. CARDIOVASCULAR: See HPI. No palpitations. PULMONARY: She has chronic coughing and shortness of breath from her COPD, but nothing out of the ordinary. GASTROINTESTINAL: No abdominal pain. No nausea or vomiting. No diarrhea or constipation. GENITOURINARY: No dysuria or hematuria. MUSCULOSKELETAL: No muscle aches or joint pains beyond what is typical for her. SKIN: No rashes or other lesions that she has noticed. NEUROLOGIC: No numbness, tingling, or focal weakness. PAST MEDICAL HISTORY: 1. Coronary artery disease with previous non-ST elevation OR in January of 2019. 2. Dyslipidemia. 3. Hypertension. 4. Moderate mitral regurgitation. 5. Moderate tricuspid regurgitation. PAST SURGICAL HISTORY: 1. Coronary stents x3. 2. . 3. Right elbow surgery. 4. Bilateral carpal tunnel surgery. SOCIAL HISTORY: The patient lives with her . She has not smoked for the last year until she smoked 2 cigarettes yesterday. She denies any illicit drug use for at least the last year. She did use to smoke marijuana. She has not had any alcohol for the last 3 years. She is a full code. Should she be incapacitated, her significant other, Hany Moulton, would be her medical decision maker. FAMILY HISTORY: There is cancer on mom's side. Her mom had hypothyroidism. ALLERGIES: NO KNOWN DRUG ALLERGIES. CURRENT MEDICATIONS: 1. Albuterol as needed for shortness of breath or wheezing. 2. Aspirin 81 mg daily. 3. Clopidogrel 75 mg daily. 4. Lisinopril 2.5 mg daily. 5. Nitroglycerin 0.4 mg sublingual as needed. 6. Rosuvastatin 20 mg at night. PHYSICAL EXAMINATION: VITAL SIGNS: Blood pressure 150/70, pulse 72, respirations 15, temperature 98.4, O2 saturation 98% on room air. GENERAL: This is a well-developed, well-nourished white female, in no acute distress. HEENT: Pupils are equal, round, and reactive to light. Oropharynx clear without lesions, erythema, or exudate. NECK: Supple. No lymphadenopathy. No thyroid nodules or enlargement. No JVD. HEART: Regular rate and rhythm. No murmurs, rubs, or gallops. LUNGS: Clear to auscultation bilaterally. No wheezes, crackles, or rhonchi. ABDOMEN: Soft, nontender to palpation. Normoactive bowel sounds. No hepatosplenomegaly or other masses. EXTREMITIES: No clubbing, cyanosis, or edema. SKIN: No rashes or lesions noted. NEUROLOGIC: The patient moves all extremities equally. No facial droop. PSYCHIATRIC: Alert and oriented x3. Normal mood and affect. LABORATORY DATA: CBC grossly within normal limits. Complete metabolic panel is notable for alkaline phosphatase of 127. The rest is normal. Lipase was negative. Troponin is negative x1. Chest x-ray, I did review the chest x-ray done in the emergency room as well as the radiologist's report and does show no significant acute changes. She does have small calcified granulomas that are unchanged from previous X-ray. I did review the EKG done in the emergency room shows normal sinus rhythm without any ST-segment changes or T-wave changes. Normal EKG. ASSESSMENT: 1. Chest pain, rule out acute coronary syndrome. The patient's pain is now improved. We will give p.r.n. nitroglycerin and we will observe in the hospital overnight on telemetry. We will recheck cardiac markers. If these remain negative, then we can do a stress test in the morning. 2. Hypertension. Resume the patient's lisinopril. 3. Hyperlipidemia. Resume the patient's statin. 4. Chronic obstructive pulmonary disease. We will resume the patient's albuterol as needed. 5. Tobacco abuse. Encouraged the patient to stay away from the cigarettes. 6. Gastrointestinal prophylaxis, put the patient on Pepcid twice a day. 7. Deep venous thrombosis prophylaxis, put the patient on Lovenox while in the hospital. CODE STATUS: The patient is a full code. Should she be incapacitated, her partner Hany Moulton will be her medical decision maker. Job ID: [id number] [id number]
[2020-09-01] MEDS ORDERED: Ondansetron PF 4 MG/2 ML Vial IVP PRN ×2 (20:15→22:01)
[2020-09-01] MEDS ORDERED: Ondansetron ODT 4 MG TAB SL PRN (20:15)
[2020-09-01] MEDS ORDERED: Acetaminophen 325 MG TAB PO PRN ×2 (20:15→22:01)
[2020-09-01 20:28] VITALS: BMI 26.7
[2020-09-01] MEDS ORDERED: Senokot S 8.6-50 MG TAB PO PRN (22:01)
[2020-09-01] MEDS ORDERED: Ondansetron ODT 4 MG TAB PO PRN (22:01)
[2020-09-01] MEDS ORDERED: Acetaminophen 650 MG Suppository PR PRN (22:01)
[2020-09-01] MEDS ORDERED: PROVENTIL INHALER 6.7 G (200 INHALATIONS) INH PRN (22:01)
[2020-09-01] MEDS ORDERED: Nitroglycerin 0.4 MG TAB (25 Tab Bottle) SL PRN (22:01)
[2020-09-01] MEDS ORDERED: Guaifenesin DM 100-10/5 ML UDCUP PO PRN (22:01)
[2020-09-01] MEDS ORDERED: Rosuvastatin 20 MG TAB PO SCH (22:15)
[2020-09-01] MEDS ORDERED: Famotidine 20 MG TAB PO SCH (22:30)
[2020-09-01] MEDS: Nitroglycerin 2% Ointment 1 INCH/1 GM Packet TOP SCH (22:41)
[2020-09-02 04:45] LABS: #Basophils 0.1 thou/uL (0.0-0.2); #Eosinphils 0.2 thou/uL (0.0-0.7); #Lymphocytes 2.9 thou/uL (1.20-3.40); #Monocytes 0.9 thou/uL (0.11-0.59); #Neutrophils 4.6 thou/uL (1.40-6.50); %Basophils 1.1 % (0.0-1.0); %Eosinophils 1.9 % (0.0-10.0); %Lymphocytes 33.7 % (21.0-51.0); %Monocytes 10.3 % (0.0-10.0); Hemoglobin 13.3 g/dL (12.0-16.0); Mean Corpuscular Hemoglobin 32.2 pg (27.0-31.0); Mean Corpuscular Volume 94.9 fL (78.0-98.0); Platelet Count 181 thou/uL (130-400); RBC Distribution Width 11.5 % (11.5-14.5); Red Blood Cell (RBC) Count 4.13 mill/uL (4.20-5.40); White Blood Cell (WBC) Count 8.7 thou/uL (4.8-10.8)
[2020-09-02 05:05] LABS: Anion Gap 13 mmol/L (10-20); BUN (Urea Nitrogen) 10 mg/dL (9.8-20.1); Calc. Creatinine Clearance 94 mL/min (70-130); Calcium 9.3 mg/dL (7.8-10.44); Carbon Dioxide 26 mmol/L (22-29); Chloride 106 mmol/L (98-107); Estimated GFR-MDRD 81; Glucose 90 mg/dL (70-105); Potassium 4.3 mmol/L (3.5-5.1); Sodium 141 mmol/L (136-145)
[2020-09-02] MEDS: Nitroglycerin 2% Ointment 1 INCH/1 GM Packet TOP SCH ×2 (05:45→14:24)
[2020-09-02] MEDS ORDERED: Regadenoson 0.4 MG/5 ML SYRINGE ONE (08:56)
[2020-09-02] MEDS ORDERED: Clopidogrel Bisulfate 75 MG TAB PO SCH (09:00)
[2020-09-02] MEDS ORDERED: Famotidine 20 MG TAB PO SCH (09:00)
[2020-09-02] MEDS ORDERED: Lisinopril 2.5 MG TAB PO SCH (09:00)
[2020-09-02] MEDS ORDERED: Enoxaparin Sodium 40 MG/0.4 ML SYRINGE SC SCH (09:00)
[2020-09-02] MEDS ORDERED: FLU VACC QS2020-21(6MOS UP)/PF 60 MCG/0.5 ML SYRINGE IM ONE (09:00)
[2020-09-02] MEDS ORDERED: Aspirin 81 mg Enteric Coated Tablet PO SCH (09:00)
[2020-09-02] MEDS ORDERED: Iopamidol 370 76% 100 ML VIAL ONE (10:50)
[2020-09-02 11:43] LABS: Troponin I Less than 0.010 ng/mL (< 0.028)
--- NOTE | 2020-09-02 12:57 | NM ---
CARDIAC SPECT: CLINICAL HISTORY: 55-year-old female with chest pain, coronary artery disease, stent, COPD, and hypertension. Smoker. TECHNIQUE: A myocardial perfusion scan was performed using the single isotope one day protocol with technetium-9 9m sestamibi. 10 mCi were injected intravenously for the rest exam followed by 32 mCi for the stress exam. Pharmacologic stress with Lexiscan was monitored and interpreted by Dr. Alonso. FINDINGS: Homogeneous tracer distribution is seen in the myocardial segments on stress and rest images without fixed or reversible defects. GATED SPECT LVEF: 66%. WALL MOTION EXAM: Normal. IMPRESSION: Normal myocardial perfusion scan. POS: AH
[2020-09-02 14:03] LABS: SARS-CoV-2 MS2 Positive; SARS-CoV-2 N Gene Negative; SARS-CoV-2 S Gene Negative; SARS-CoV-2 by NAA Not Detected (NotDetected); SARS-CoV-2 orf1ab Negative
[2020-09-02 15:06] VITALS: BP 111/53; TEMP 98
--- NOTE | 2020-09-02 15:20 | CT ---
CTA Angio Chest W Con History: Elevated d-dimer Comparison: Radiograph chest prior day Findings: CT angiogram chest performed after the intravenous administration of contrast. 3-D renderin g provided. No proximal segmental pulmonary arterial filling defect.. No pericardial effusion. Calcified mediasti nal lymph nodes. Calcified granuloma right lower lobe. Small calcified granulomas within the right middle lobe. Small cyst in left lung base. Minimal paraseptal emphysema lung apices. Thoracic spine is intact. Sternum and manubrium are intact. No displaced rib fracture. No evidence for pneumonia. No suspicious pulmonary nodule. Minimal atelectasis within the right middl e lobe along the mediastinal pleura. Minimal 3 mm perifissural nodule along the left major fissure. Impression: No pulmonary embolism or other acute intrathoracic abnormality. Prior granulomatous disea se.
[2020-09-02] MEDS ORDERED: Rosuvastatin 20 MG TAB PO SCH (21:00)
--- NOTE | 2020-09-03 03:00 | DIS ---
DATE OF ADMISSION: 09/01/2020 DATE OF DISCHARGE: 09/02/2020 DISCHARGE DIAGNOSES: 1. Chest pain. 2. History of coronary artery disease. 3. Hyperlipidemia. HOSPITAL COURSE: The patient is a 55-year-old female, who initially presented to the hospital with chest discomfort. She has had LA and stents in 2019. Her troponins x3 were negative. She did undergo a Cardiolite stress test, which indicated EF of 66% with normal myocardial perfusion scan without any fixed or reversible defects. At this time, the patient also underwent a CTA. There was no PE that was indicated. However, she did have some granulomatous disease, had a minimum of 3 mm perifissural nodule along the major fissure and a small calcified granuloma in the right middle lobe. The patient was notified about this and I was asked to follow up with her primary care doctor. The patient will follow up with her primary in regard to this. I have advised her against smoking, and if her symptoms return, she needs to follow up with us or come back to the hospital. HOME MEDICATIONS: 1. Aspirin 81 mg daily. 2. Rosuvastatin 20 mg at bedtime. 3. Lisinopril 2.5 mg daily. 4. Clopidogrel 75 mg daily. PHYSICAL EXAMINATION: VITAL SIGNS: On discharge, temperature of 98.0, , on room air, blood pressure 111/53. GENERAL: The patient is awake, alert, and oriented x3. Does not appear in distress. CV: S1, S2 present. No murmurs, rubs, or gallops. Again, she will be discharged home to follow up with her primary. Job ID: [id number]
== END 2020-09-02 18:03 | disposition home or self-care (01) ==
LOC: ERS 11:36 → ERHOLD 16:35 → 2NO 19:57
PROVIDERS: ADMIT Emergency Medicine; ATTEND Internal Medicine
DX: R07.89 Other chest pain (principal); I25.10 Atherosclerotic heart disease of native coronary artery without angina pectoris; E78.5 Hyperlipidemia, unspecified; I25.2 Old myocardial infarction; F17.210 Nicotine dependence, cigarettes, uncomplicated; I10 Essential (primary) hypertension; I08.1 Rheumatic disorders of both mitral and tricuspid valves; J44.9 Chronic obstructive pulmonary disease, unspecified; F12.10 Cannabis abuse, uncomplicated; F15.11 Other stimulant abuse, in remission; J84.10 Pulmonary fibrosis, unspecified; Z79.02 Long term (current) use of antithrombotics/antiplatelets; Z79.82 Long term (current) use of aspirin; Z79.899 Other long term (current) drug therapy; Z95.5 Presence of coronary angioplasty implant and graft; Z20.828 Contact with and (suspected) exposure to other viral communicable diseases
CPT/HCPCS: 36415; 71045; 71275; 78452; 80048; 80053; 82550; 83690; 84484; 85025; 85379; 87635; 93005; 93017; 96372; 96374; A9500; G0378; J1650; J2270; J2785; Q9967; U0003

== ENCOUNTER 2021-09-16 14:22 | Emergency (ER) | payer OTHER, SELFPAY ==
[2021-09-16 16:10] LABS: ALT (SGPT) 12 U/L (8-55); AST (SGOT) 15 U/L (5-34); Alkaline Phosphatase 101 U/L (40-110); Anion Gap 12 mmol/L (10-20); BUN (Urea Nitrogen) 8 mg/dL (9.8-20.1); Bilirubin, Total 0.3 mg/dL (0.2-1.2); Calc. Creatinine Clearance 0 mL/min (70-130); Calcium 9.3 mg/dL (7.8-10.44); Carbon Dioxide 25 mmol/L (22-29); Chloride 108 mmol/L (98-107); Globulin 3.2 g/dL (2.4-3.5); Glucose 96 mg/dL (70-105); Potassium 3.8 mmol/L (3.5-5.1); Protein, Total 7.2 g/dL (6.0-8.3); Sodium 141 mmol/L (136-145)
[2021-09-16 16:13] LABS: #Basophils 0.1 thou/uL (0.0-0.2); #Eosinphils 0.1 thou/uL (0.0-0.7); #Lymphocytes 2.5 thou/uL (1.20-3.40); #Monocytes 0.6 thou/uL (0.11-0.59); #Neutrophils 4.5 thou/uL (1.40-6.50); %Basophils 0.7 % (0.0-1.0); %Eosinophils 1.5 % (0.0-10.0); %Lymphocytes 31.8 % (21.0-51.0); %Monocytes 8.2 % (0.0-10.0); %Neutrophils 57.8 % (42.0-75.0); Hemoglobin 13.5 g/dL (12.0-16.0); Mean Corpuscular HGB CONC 34.4 g/dL (32.0-36.0); Mean Corpuscular Hemoglobin 33.1 pg (27.0-31.0); Mean Corpuscular Volume 96.1 fL (78.0-98.0); Mean Platelet Volume 10.9 fL (7.4-10.4); Platelet Count 154 thou/uL (130-400); RBC Distribution Width 11.5 % (11.5-14.5); Red Blood Cell (RBC) Count 4.07 mill/uL (4.20-5.40); White Blood Cell (WBC) Count 7.9 thou/uL (4.8-10.8)
== END 2021-09-16 16:40 | disposition home or self-care (01) ==
LOC: ERS 14:22
DX: I10 Essential (primary) hypertension (principal); R20.2 Paresthesia of skin; I25.2 Old myocardial infarction; J44.9 Chronic obstructive pulmonary disease, unspecified
CPT/HCPCS: 36415; 80053; 84484; 85025; 93005

== ENCOUNTER 2021-11-07 11:23 | Emergency (ER) | payer OTHER ==
[2021-11-07] MEDS ORDERED: Ketorolac Tromethamine 30 MG/ML VIAL ONE (14:00)
== END 2021-11-07 14:15 | disposition home or self-care (01) ==
LOC: ERS 11:23
DX: M94.0 Chondrocostal junction syndrome [Tietze] (principal); Z79.899 Other long term (current) drug therapy; Z79.82 Long term (current) use of aspirin
CPT/HCPCS: 93005; 96372; J1885